=== PATIENT | female | born 1960 | race Caucasian/White ===

== ENCOUNTER 2017-11-20 18:14 | Emergency (ER) | payer OTHER, MEDICAID ==
--- NOTE | 2017-11-20 18:33 | EDPHY ---
H & P Time Seen by Provider: 11/20/17 18:33 HPI/ROS: CHIEF COMPLAINT: Itching rash on toes HISTORY OF PRESENT ILLNESS: 57-year-old homeless female complaining of 3 days of itching erythema to the webspace to the 4th and 5th digit . No pain. No trauma. No lymphangitic streaking. Up to date tetanus. Able to bear weight PRIMARY CARE PROVIDER: REVIEW OF SYSTEMS: A ten point review of systems was performed and is negative with the exception of the items mentioned in the HPI PHYSICAL EXAM (Prior to examination, patient consented to physical exam, hands were washed and my usual and customary physical exam procedures followed) 1) GENERAL: Well-developed, well-nourished, alert and oriented. Appears to be in no acute distress. 2) HEAD: Normocephalic 3) HEENT: sclera anicteric 4) LUNGS: Breathing comfortably. 5) SKIN: In the webspace to in the right 4th and 5th toe patient has faint erythema consistent with tinea pedis. There is no sign of cellulitis. No lymphangitic streaking. No crepitus. DP PT pulses are present and brisk. Smoking Status: Heavy smoker Constitutional: Initial Vital Signs Temperature (C) 36.9 C 11/20/17 18:18 Heart Rate 85 11/20/17 18:18 Respiratory Rate 16 11/20/17 18:18 Blood Pressure 163/98 H 11/20/17 18:18 O2 Sat (%) 100 11/20/17 18:18 O2 Delivery Mode Room Air Allergies/Adverse Reactions: Sulfa (Sulfonamide Antibiotics) Allergy (Verified 11/20/17 18:24) tetracycline Allergy (Verified 11/20/17 18:24) Home Medications: Medication Instructions Recorded Bp And Chol Med 11/20/17 Carvedilol 6.25 mg PO 11/20/17 Nystatin/Triamcin 1 valentin TP BID #30 oint...g. 11/20/17 [Nystatin-Triamcinolone Ointm] MDM/Departure - MDM ED Course/Re-evaluation: 6:50 p.m.: Homeless female with clinical findings consistent with tinea pedis. Doubt cellulitis. Do not think that hospitalization dictated. We discussed foot Health and hygiene. I am prescribing the patient topical antifungal. She is newly arrived from [place], [facility]. Provided her with [facility] follow-up information. If she develops erythema, lymphangitis streaking or any other symptoms to return to the ER. She feels comfortable being discharged. I saw this patient independently based on established practice protocols. Care of patient under supervision of secondary supervising physician Dr Reyes . - Depart Disposition: Home, Routine, Self-Care Clinical Impression: Tinea pedis Qualifiers: Laterality: right Qualified Code(s): B35.3 - Tinea pedis Condition: Good Instructions: Athlete's Foot (ED) Additional Instructions: Return to the ER if you develop redness, swelling, discharge, warmth to the wound, red streaks going up your leg, or any other symptoms that concern you. Prescriptions: Nystatin/Triamcin [Nystatin-Triamcinolone Ointm] 1 valentin TP BID #30 oint...g. Referrals: NONE *PRIMARY CARE P,. [Primary Care Provider] - As per Instructions
[2017-11-20 19:03] VITALS: BP 155/102
== END 2017-11-20 19:05 | disposition home or self-care (01) ==
DX: B35.3 Tinea pedis (principal); F17.200 Nicotine dependence, unspecified, uncomplicated

== ENCOUNTER 2017-12-03 14:05 | Emergency (ER) | payer OTHER, MEDICAID ==
[2017-12-03 14:22] VITALS: BP 105/57
--- NOTE | 2017-12-03 15:02 | EDPHY ---
H & P Stated Complaint: l sided abd pain/thinks it is hernia has had pain for 3 years Time Seen by Provider: 12/03/17 15:01 HPI/ROS: CHIEF COMPLAINT: Requesting surgical referral HISTORY OF PRESENT ILLNESS: The patient presents to the ED requesting a referral to a general surgeon for a 3 year history of a bilateral inguinal hernia. The patient has a prior history of a right inguinal hernia which has been repaired. She has developed a recurrent right inguinal hernia and reports symptoms consistent with a left inguinal hernia. The patient denies fever, cough or congestion. She denies additional acute complaints. She denies vomiting. She denies any irreducible masses in her groin area. REVIEW OF SYSTEMS: A comprehensive 10 point review of systems is otherwise negative aside from elements mentioned in the history of present illness. Source: Patient - Personal History Current Tetanus/Diphtheria Vaccine: No - Medical/Surgical History Hx Asthma: No Hx Chronic Respiratory Disease: Yes Hx Diabetes: No Hx Cardiac Disease: Yes Hx Renal Disease: No Hx Cirrhosis: No Hx Alcoholism: No Hx HIV/AIDS: No Hx Splenectomy or Spleen Trauma: No Other PMH: [place] x 2. valve stenosis ,htn l inguinal hernia - Social History Smoking Status: Heavy smoker - Physical Exam Exam: General Appearance: Alert, no distress Eyes: Pupils equal and round no pallor or injection ENT, Mouth: Mucous membranes moist Respiratory: There are no retractions, lungs are clear to auscultation Cardiovascular: Regular rate and rhythm Gastrointestinal: Old surgical incision clean dry and intact, small left inguinal hernia without evidence of incarceration or strangulation Skin: Warm and dry, no rashes Musculoskeletal: Neck is supple nontender Extremities: symmetrical, full range of motion Constitutional: Initial Vital Signs Temperature (C) 36.6 C 12/03/17 14:19 Heart Rate 69 12/03/17 14:19 Respiratory Rate 18 12/03/17 14:19 Blood Pressure 105/57 L 12/03/17 14:19 O2 Sat (%) 99 12/03/17 14:19 O2 Delivery Mode Room Air Allergies/Adverse Reactions: Sulfa (Sulfonamide Antibiotics) Allergy (Verified 12/03/17 14:18) tetracycline Allergy (Verified 12/03/17 14:18) Home Medications: Medication Instructions Recorded Bp And Chol Med 11/20/17 Carvedilol 6.25 mg PO 11/20/17 Nystatin/Triamcin 1 valentin TP BID #30 oint...g. 11/20/17 [Nystatin-Triamcinolone Ointm] Medical Decision Making ED Course/Re-evaluation: The patient presents to the ED with a 3 year history of an inguinal hernia. There is no evidence of incarceration or strangulation. The patient will be referred to our on-call general surgeon. She is discharged home with customary aftercare instructions and return precautions. Departure - Departure Disposition: Home, Routine, Self-Care Clinical Impression: Inguinal hernia Condition: Good Instructions: Inguinal Hernia (ED) Additional Instructions: 1. Please contact the general surgeon you have been referred to to schedule an office based appointment for evaluation of your hernia. Referrals: Cassie Collins MD [Medical Doctor] - As per Instructions
== END 2017-12-03 15:17 | disposition home or self-care (01) ==
DX: K40.90 Unilateral inguinal hernia, without obstruction or gangrene, not specified as recurrent (principal); I25.2 Old myocardial infarction; I10 Essential (primary) hypertension; F17.200 Nicotine dependence, unspecified, uncomplicated

== ENCOUNTER 2017-12-14 13:03 | Observation (INO) | payer OTHER, MEDICAID ==
[2017-12-14] MEDS ORDERED: EPINEPHrine 1 MG/ML INJ ONE (13:12)
[2017-12-14] MEDS ORDERED: BUPIVACAINE 0.25% 30 ML SDV ONE (13:12)
--- NOTE | 2017-12-14 13:14 | PDHPUP ---
History & Physical Update H&P update statement: This history and physical update is based on an assessment of the patient which was completed after admission or registration (within 24 hours), but prior to the surgery/procedure. H&P update: H&P reviewed & patient examined, no change in patient's condition since H&P completed
[2017-12-14] MEDS ORDERED: LR 1,000 ML IV ONE (13:20)
[2017-12-14] MEDS ORDERED: LIDOCAINE 1% 2 ML INJ ID PRN (13:20)
[2017-12-14] MEDS ORDERED: MIDAZOLAM 2 MG/2 ML VIAL IVP ONE (14:19)
--- NOTE | 2017-12-14 14:27 | PDANEPAE ---
ANE History of Present Illness Inguinal hernia ANE Past Medical History - Cardiovascular History Hx Hypertension: Yes Hx Arrhythmias: No Hx Chest Pain: Yes Hx Coronary Artery / Peripheral Vascular Disease: Yes Hx CHF / Valvular Disease: No Hx Palpitations: Yes Cardiovascular History Comment: hx of [place] x 2 - 2007 & 2008 - Pulmonary History Hx COPD: Yes Hx Asthma/Reactive Airway Disease: Yes Hx Recent Upper Respiratory Infection: Yes Hx Oxygen in Use at Home: No Pulmonary History Comment: 1 pack cigarettes Q2days. Pneumonia - Jul 2017. - Neurologic History Hx Cerebrovascular Accident: No Hx Seizures: Yes Neurologic History Comment: Seizure - 1988 or 1989 - Endocrine History Hx Diabetes: No - Renal History Hx Renal Disorders: No - Liver History Hx Hepatic Disorders: No - Neurological & Psychiatric Hx Hx Neurological and Psychiatric Disorders: Yes Neurological / Psychiatric History Comment: PTSD, Bipolar disorder, Depressive, and Schizoaffective disorder. - Cancer History Hx Cancer: Yes Cancer History Comment: Ovarian cancer - Congenital Disorder History Hx Congenital Disorders: No - Surgical History Prior Surgeries: Right hernia repair. Tubal ligation. Oophorectomy. Uterine fibroids ANE Review of Systems Review of systems is: negative Review of Systems: - Exercise capacity METS (RN): 4 METS ANE Patient History - Allergies Allergies/Adverse Reactions: Sulfa (Sulfonamide Antibiotics) Allergy (Verified 12/14/17 13:36) ulcerative colitis tetracycline Allergy (Verified 12/14/17 13:36) Vomiting - Home Medications Home medications: home medication list seen and reviewed Home Medications: Bp And Chol Med 11/20/17 [Last Taken Unknown] Carvedilol 6.25 mg PO 11/20/17 [Last Taken 12/13/17] Advair 250/50 (*) 12/14/17 [Last Taken 12/13/17] Amitiza 12/14/17 [Last Taken 2 Weeks Ago ~11/30/17] Amlodipine Besylate 12/14/17 [Last Taken 12/13/17] Atorvastatin Calcium 12/14/17 [Last Taken 12/13/17] Benazepril HCl 12/14/17 [Last Taken 12/13/17] FOLIC ACID 12/14/17 [Last Taken 12/13/17] Hydroxychloroquine Sulfate 12/14/17 [Last Taken 12/13/17] Lyrica 12/14/17 [Last Taken 12/13/17] Melatonin 12/14/17 [Last Taken 12/13/17] Methotrexate 12/14/17 [Last Taken 12/13/17] Prazosin HCl 12/14/17 [Last Taken 12/13/17] Proair Hfa 12/14/17 [Last Taken 12/13/17] - NPO status NPO Since - Liquids (Date): 12/14/17 NPO Since - Liquids (Time): 04:30 NPO Since - Solids (Date): 12/13/17 NPO Since - Solids (Time): 18:30 - Anes Hx Anes Hx: no prior problems - Smoking Hx Smoking Status: Heavy smoker - Family Anes Hx Family Anes Hx: none Family Hx Anesthesia Complications: None. ANE Labs/Vital Signs - Vital Signs Vital Signs: reviewed preoperatively; see RN documention for details Blood Pressure: 138/75 Heart Rate: 62 Respiratory Rate: 18 O2 Sat (%): 100 Height: 167.64 cm Weight: 56.699 kg ANE Physical Exam - Airway Neck exam: FROM Mallampati Score: Class 1 Mouth exam: dentures - Pulmonary Pulmonary: no respiratory distress - Cardiovascular Cardiovascular: regular rate and rhythym - ASA Status ASA Status: III ANE Anesthesia Plan Anesthesia Plan: general endotracheal anesthesia
[2017-12-14] MEDS ORDERED: MIDAZOLAM 2 MG/2 ML VIAL ONE (14:29)
[2017-12-14] MEDS ORDERED: ceFAZolin 2 GM/DEXTROSE 100 ML IV ONE (14:40)
[2017-12-14] MEDS ORDERED: PROPOFOL 200 MG/20 ML VIAL ONE (14:40)
[2017-12-14] MEDS ORDERED: DEXAMETHASONE 4 MG/ML VIAL ONE (14:40)
[2017-12-14] MEDS ORDERED: ONDANSETRON 4 MG/2 ML VIAL ONE (14:40)
[2017-12-14] MEDS ORDERED: fentaNYL 100 MCG/2 ML INJ ONE ×2 (14:40→16:14)
[2017-12-14] MEDS ORDERED: LIDOCAINE 2% 100 MG/5 ML SYR ONE (14:40)
--- NOTE | 2017-12-14 15:39 | POSTOPPROG ---
Post Op Note Date of Operation: 12/14/17 Surgeon: Zhang Patton Smooth Plater: SUSAN Liu Anesthesiologist: Radha Anesthesia: GET(General Endotracheal) Pre-op Diagnosis: LIH Post-op Diagnosis: same Procedure: open left inguinal hernia repair with mesh Findings: indirect Inf/Abcess present in the surg proc area at time of surgery?: No EBL: Minimal
[2017-12-14] MEDS ORDERED: ONDANSETRON 4 MG/2 ML VIAL IVP PRN (15:50)
[2017-12-14] MEDS ORDERED: ACETAMINOPHEN 500 MG TAB PO PRN (15:50)
[2017-12-14] MEDS ORDERED: HYDROmorphONE/DILAUDID 1 MG/ML INJ IVP PRN (15:50)
[2017-12-14] MEDS ORDERED: MEPERIDINE 25 MG/0.5 ML AMP IVP PRN (15:50)
[2017-12-14] MEDS ORDERED: DEXAMETHASONE 4 MG/ML VIAL IVP PRN (15:50)
[2017-12-14] MEDS ORDERED: NALOXONE HCL 0.4 MG/ML INJ IVP PRN (15:50)
[2017-12-14] MEDS ORDERED: PROMETHAZINE HCL 25 MG/ML INJ IVP PRN (15:50)
[2017-12-14] MEDS ORDERED: oxyCODONE IR 5 MG TAB PO PRN (15:50)
[2017-12-14] MEDS ORDERED: ALBUTEROL 3 ML DEYVIAL IH PRN (15:50)
[2017-12-14] MEDS ORDERED: fentaNYL 100 MCG/2 ML INJ IVP PRN (15:50)
--- NOTE | 2017-12-14 15:51 | POSTANESTH ---
Post Anesthetic Evaluation Cardiovascular Status: Similar to Pre-Op Cond Respiratory Status: Similar to Pre-op Cond. Level of Consciousness/Mental Status: Can Participate in Eval, Moderately Sleepy Pain Control: Adequate, Prn Tx Ordered Nausea/Vomiting Control: Adequate, Prn Tx Ordered Complications Possibly Related to Anesthesia: None Noted
[2017-12-14] MEDS: HYDROCODONE/APAP 5/325 TAB PO PRN ×3 (17:34→22:02)
[2017-12-14] MEDS: IBUPROFEN 600 MG TAB PO SCH (22:02)
[2017-12-15] MEDS: HYDROCODONE/APAP 5/325 TAB PO PRN ×2 (03:05→09:45)
[2017-12-15] MEDS: IBUPROFEN 600 MG TAB PO SCH (05:58)
[2017-12-15 07:43] VITALS: BP 118/72
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
--- NOTE | 2017-12-17 09:22 | ASMTLCPROG ---
Notes Note: Notes: This note was created by KESHAWN Ga: DONNIE Sher requested consultation regarding the patient's reported SI pre-surgery . The patient reported wishing she "just wouldn't wake up." She reported that she couldn't suicide because of her responsibility to her cat.KESHAWN met the patient and the patient was no longer endorsing SI. The patient has had a history of chronic and passive SI and increased stressors. She plans to heal from surgery and return to [place] at the end of the month. The patient expressed gratitude for [facility] staff who are supporting her medical needs and their concern for her psychiatric health also. Date Signed: 12/17/2017 09:22 AM Electronically Signed By:Sarah Witt RN
--- NOTE | 2017-12-31 12:48 | GOP ---
[f rep st] OPERATIVE REPORT DATE OF OPERATION: 12/14/2017 SURGEON: Zhang Patton MD OUTSIDE MAINTENANCE WORKER: SHANIA Liu. ANESTHESIA: General endotracheal Dr. Garcia. PREOPERATIVE DIAGNOSIS: Left inguinal hernia. POSTOPERATIVE DIAGNOSIS: Left inguinal hernia. PROCEDURE PERFORMED: Open left inguinal hernia repair with mesh FINDINGS: Moderate-sized indirect inguinal hernia, highly ligated and repaired with Parietex ProGrip mesh. SPECIMENS: None. ESTIMATED BLOOD LOSS: 5 cc. DESCRIPTION OF PROCEDURE: The patient was greeted in the preoperative suite. Once again, risks, damien efits, and alternatives were discussed. Consent was signed. She was then brought back to the operat tom suite, placed on the OR table in supine position. After all anesthesia machines including SCDs w ere on and functioning, a [employer] time-out was performed. After successful inducti on of general anesthesia, the patient's abdomen was prepped and draped in typical sterile fashion. I commenced the procedure by making a field block in the groin area and making a 4 cm incision adjacen t to the pubic tubercle. This was carried down through the subcutaneous tissue. The aponeurosis of the external oblique was then opened sharply. The round ligament was then identified and subsequentl y encircled and tied off and cut. Within this was a fairly large indirect hernia sac which was tease d off, highly ligated with a 2-0 Vicryl stitch. The floor was intact. I repaired the defect with a Parietex ProGrip piece of mesh. I tacked it to the pubic tubercle with an interrupted 0-Vicryl stitc h, as well as a single stitch in the conjoined tendon. It was allowed to lay along the inguinal liga ment without any undue tension. I then turned my attention toward closing. I closed the external ob lique with a running 2-0 Vicryl, the subcutaneous tissue with a 3-0 Vicryl and the skin with a Monocr yl over which Dermabond was placed. Local anesthesia was used throughout to create a field block. T he patient was then extubated in the operative suite and taken to the PACU in satisfactory condition. DRAINS: None. COUNTS: All counts were reported as correct x2. /[id number]/MODL
--- NOTE | 2018-01-04 22:01 | GDS ---
[f rep st] DISCHARGE SUMMARY DISCHARGE DIAGNOSIS: Left inguinal hernia. PROCEDURE: Open left inguinal hernia repair with mesh. SPECIAL TESTS: None. INTRAOPERATIVE FINDINGS: Moderately sized indirect inguinal hernia, highly ligated and repaired with Parietex ProGrip mesh. HOSPITAL COURSE: Sharron is a 57-year-old female with a recurrent left inguinal hernia. She went to [facility] operating room for repair with Dr. Patton. The procedure was uncomplicated, and she tolerated it well. The patient's postoperative course was relatively uneventful. She was kept overnight for observation . She was discharged to home in stable condition on postoperative day 1 with plans for outpatient kera. /[id number]/MODL
== END 2017-12-15 11:23 | disposition home or self-care (01) ==
LOC: F3N 13:03 → F1N 16:51
PROVIDERS: ADMIT Surgery; ATTEND Surgery
PROC: 0YU60JZ Supplement Left Inguinal Region with Synthetic Substitute, Open Approach (ICD-10-PCS; principal; 2017-12-14 14:30)
DX: K40.90 Unilateral inguinal hernia, without obstruction or gangrene, not specified as recurrent (principal); I25.10 Atherosclerotic heart disease of native coronary artery without angina pectoris; I25.2 Old myocardial infarction; J45.909 Unspecified asthma, uncomplicated; M06.9 Rheumatoid arthritis, unspecified; K51.90 Ulcerative colitis, unspecified, without complications; I10 Essential (primary) hypertension; F17.210 Nicotine dependence, cigarettes, uncomplicated; F31.9 Bipolar disorder, unspecified; Z85.43 Personal history of malignant neoplasm of ovary; Z82.49 Family history of ischemic heart disease and other diseases of the circulatory system; Z90.721 Acquired absence of ovaries, unilateral
CPT/HCPCS: 49505; C1781; J0171; J0690; J1100; J2001; J2250; J2405; J2704; J3010

== ENCOUNTER → 2017-12-22 | Outpatient (CLI) | payer MEDICAID, OTHER | LOC: BMCIMAGING 13:26 | PROVIDERS: ATTEND Emergency Medicine | DX: J44.9 Chronic obstructive pulmonary disease, unspecified (principal); J40 Bronchitis, not specified as acute or chronic; F17.210 Nicotine dependence, cigarettes, uncomplicated ==

== ENCOUNTER 2018-01-02 20:46 | Inpatient (IN) | payer OTHER, MEDICAID ==
[2018-01-02] MEDS ORDERED: NS 1,000 ML IV ONE ×2 (20:51→22:55)
--- NOTE | 2018-01-02 20:54 | CPEKG ---
Heart Rate: 70 RR Interval: 857 P-R Interval: 124 QRSD Interval: 104 QT Interval: 520 QTC Interval: 562 P Verona: 32 QRS [place]ona: 62 T Wave Verona: 85 EKG Severity - ABNORMAL ECG - EKG Impression: SINUS RHYTHM EKG Impression: BORDERLINE INFERIOR Q WAVES EKG Impression: NONSPECIFIC T ABNORMALITIES, ANT-LAT LEADS EKG Impression: PROLONGED QT INTERVAL Electronically Signed By: Messi Reyes 02-Jan-2018 20:59:04
[2018-01-02] MEDS ORDERED: NS 1,700 ML IV ONE (20:57)
--- NOTE | 2018-01-02 20:57 | EDPHY ---
H & P Stated Complaint: CP Time Seen by Provider: 01/02/18 20:51 HPI/ROS: CHIEF COMPLAINT: Lightheaded 2, nausea HISTORY OF PRESENT ILLNESS: The patient is a 57-year-old female with a history of methamphetamine abuse as well as coronary disease, bipolar and schizoaffective disease who comes to the emergency department complaining of acute onset of lightheadedness and nausea that began about an hour ago. No focal weakness or deficits. No syncope, no seizures. She denies chest pain or shortness of breath. She states that she has feels nauseous but has not vomited. She had normal vital signs for EMS but is hypotensive here. She admits to using methamphetamine yesterday for the 1st time and several months. She is staying at the [facility]. She denies recent fevers or infections. She denies abdominal pain. REVIEW OF SYSTEMS: Constitutional: denies: chills, fever, recent illness, recent injury EENTM: denies: blurred vision, double vision, nose congestion Respiratory: denies: cough, shortness of breath Cardiac: See HPI Gastrointestinal/Abdominal: See HPI Genitourinary: denies: dysuria, frequency, hematuria, pain Musculoskeletal: denies: joint pain, muscle pain Skin: denies: lesions, rash, jaundice, bruising Neurological: See HPI denies: headache, numbness, paresthesia, tingling, dizziness, weakness Hematologic/Lymphatic: denies: blood clots, easy bleeding, easy bruising Immunologic/allergic: denies: HIV/AIDS, transplant EXAM: GENERAL: Thin, moderate distress HEAD: Atraumatic, normocephalic. EYES: No nystagmus, Pupils equal round and reactive to light, extraocular movements intact, sclera anicteric, conjunctiva are normal. ENT: TMs normal, nares patent, oropharynx clear without exudates. Moist mucous membranes. NECK: Normal range of motion, supple without lymphadenopathy or JVD. LUNGS: Breath sounds clear to auscultation bilaterally and equal. No wheezes rales or rhonchi. HEART: Regular rate and rhythm without murmurs, rubs or gallops. ABDOMEN: Soft, nontender, normoactive bowel sounds. No guarding, no rebound. No masses appreciated. BACK: No CVA tenderness, no spinal tenderness, step-offs or deformities EXTREMITIES: Normal range of motion, no pitting or edema. No clubbing or cyanosis. NEUROLOGICAL: Cranial nerves II through XII grossly intact. Normal speech, normal gait. 5/5 strength, normal movement in all extremities, normal sensation PSYCH: Normal mood, normal affect. SKIN: Warm, dry, normal turgor, no visible rashes or lesions. Source: Patient Exam Limitations: No limitations - Personal History Current Tetanus/Diphtheria Vaccine: Unsure Current Tetanus Diphtheria and Acellular Pertussis (TDAP): Unsure - Medical/Surgical History Hx Asthma: No Hx Chronic Respiratory Disease: Yes Hx Diabetes: No Hx Cardiac Disease: Yes Hx Renal Disease: No Hx Cirrhosis: No Hx Alcoholism: No Hx HIV/AIDS: No Hx Splenectomy or Spleen Trauma: No Other PMH: [place] x 2. valve stenosis ,htn L inguinal hernia repair, CAD, COPD, Ovarian cancer, bipolar, schizo-affective disorder, PTSD, Ulcerative colitis - Family History Significant Family History: No pertinent family hx - Social History Smoking Status: Heavy smoker Drug Use: Other Constitutional: Initial Vital Signs Temperature (C) 36.6 C 01/02/18 20:47 Heart Rate 70 01/02/18 20:47 Respiratory Rate 16 01/02/18 20:47 Blood Pressure 74/51 L 01/02/18 20:47 O2 Sat (%) 94 01/02/18 20:47 O2 Delivery Mode Room Air Allergies/Adverse Reactions: Sulfa (Sulfonamide Antibiotics) Allergy (Verified 12/14/17 17:40) ulcerative colitis tetracycline Allergy (Verified 12/14/17 17:40) Vomiting Home Medications: Medication Instructions Recorded Albuterol [Proventil Inhaler HFA 2 puffs IH Q4-6PRN PRN 12/15/17 (*)] Atorvastatin Calcium [Lipitor 40 40 mg PO DAILY 12/15/17 mg (*)] Benazepril HCl 40 mg PO DAILY 12/15/17 Carvedilol [Coreg (*)] 6.25 mg PO BIDMEAL 12/15/17 Dicyclomine [Bentyl 20 MG (*)] 20 mg PO BID 12/15/17 Ferrous Sulfate [Ferrous Sulf 325 325 mg PO DAILY 12/15/17 MG (*)] Fluticasone/Salmeter 250/50Mcg 1 puffs IH BID 12/15/17 [Advair 250/50 (*)] Folic Acid [Folic Acid 1 MG (*)] 1 mg PO DAILY 12/15/17 Hydroxychloroquine Sulfate 400 mg PO DAILY 12/15/17 [Plaquenil 200 mg (*)] Lubiprostone [Amitiza 24 mcg (*)] 24 mcg PO BIDMEAL 12/15/17 Melatonin [Melatonin 5 mg] 10 mg PO HS 12/15/17 Methotrexate Sodium [Rheumatrex] 12.5 mg PO Q7D 12/15/17 Nystatin [Mycostatin Oint (RX)] 1 valentin TP BID 12/15/17 Prazosin HCl [Minipress 1mg (*)] 1 mg PO HS 12/15/17 Pregabalin [Lyrica 150mg (*)] 150 mg PO BID 12/15/17 amLODIPine BESYLATE [Norvasc 5 mg 5 mg PO DAILY 12/15/17 (*)] Beclomethasone Dipropionate [Qvar 01/03/18 Redihaler] Medical Decision Making - Diagnostics EKG Interpretation: An EKG obtained and was read and documented in trace view. Please see trace view for full reading and report. Sinus rhythm, no acute ischemic changes A repeat EKG obtained and was read and documented in trace view. Please see trace view for full reading and report. Sinus rhythm, no acute ischemic changes similar to previous Procedures: Procedure: Ultrasound guidance: Using the linear probe covered in a sterile sheath, a short axis of the vein was obtained. The vein was completely compressible and was identified as separate from the adjacent non-compressible arterial structure. Under real-time guidance, the introducer needle was observed up to the vein, and then punctured it. These images were saved on the database. Central line placement: The indication for the procedure was hypotension. After verbal informed consent from patient; the risks were explained including bleeding, infection, and collapsed lung. Maximal sterile barrier technique was uses including cap, gown, sterile gloves, large sheet, hand washing and chlorhexidine prep. The area anesthetized with 1% lidocaine. The right IJ was punctured with a 19 gauge finder needle, then a wire introducer was placed, a triple-lumen was placed using Seldinger technique. There were no complications. Blood return low pressure, dark blood. The patient tolerated procedure well. CXR results: Good placement as interpreted by myself. Radiologist interpretation is pending. The procedure was performed by myself. ED Course/Re-evaluation: 9:35 p.m. I discussed the case with Dr. Tien savage from Cardiology. 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 9:40 p.m. discussed the case with Dr. Arlene Maldonado will admit to the ICU. Differential Diagnosis: Partial list of the Differential diagnosis considered include but were not limited to; cardiomyopathy, anemia, acute coronary disease and although unlikely based on the history and physical exam, I also considered dissection, PE, pneumonia. Critical Care Time: Critical care time spent by me, Dr. Reyes exclusive with this patient was 45 minutes, exclusive of the PA time exclusive of procedures. The organ system that was at risk was cardiovascular and I gave IV fluids, medications, diagnostics, consultation and admission to prevent worsening of the patient's condition - Data Points Laboratory Results: Laboratory Results 01/02/18 20:46 01/02/18 20:46 Medications Given: Discontinued Medications Acetaminophen (Tylenol) 650 mg PO Q4HRS PRN PRN Reason: Pain, Mild/Fever, Can Take PO Stop: 07/01/18 22:16 Last Admin: 01/03/18 04:07 Dose: 650 mg Aspirin (Aspirin) 324 mg PO EDNOW ONE Stop: 01/02/18 21:09 Last Admin: 01/02/18 21:28 Dose: 324 mg Hydrocortisone (Solucortef) 100 mg IVP ONCE ONE Stop: 01/02/18 23:11 Last Admin: 01/02/18 23:25 Dose: 100 mg Sodium Chloride (Ns) 1,000 mls @ 0 mls/hr IV EDNOW ONE; Wide Open PRN Reason: Protocol Stop: 01/02/18 20:52 Last Admin: 01/02/18 21:00 Dose: 1,000 mls Sodium Chloride (Ns) 1,700 mls @ 3,400 mls/hr 30 ml/kg infuse over 30 min ( 1700 ml) IV EDNOW ONE PRN Reason: Protocol Stop: 01/02/18 21:26 Last Admin: 01/02/18 21:24 Dose: 1,700 mls Dopamine HCl/Dextrose (Dopamine 1600 Mcg/Ml (Premix)) 250 mls @ 0 mls/hr IV CONT JAYMIE; Titrate PRN Reason: Protocol Stop: 07/01/18 21:59 Last Admin: 01/03/18 04:32 Dose: 250 mls Sodium Chloride (Ns) 1,000 mls @ 0 mls/hr IV ONCE ONE PRN Reason: Wide Open Stop: 01/02/18 22:56 Last Admin: 01/02/18 23:20 Dose: 1,000 mls Norepinephrine 4 mg/ Dextrose 504 mls @ 0 mls/hr IV CONT JAYMIE; Titrate PRN Reason: Protocol Stop: 07/01/18 22:59 Last Admin: 01/03/18 06:47 Dose: 504 mls Piperacillin/Tazobactam/Dextrose (Zosyn 3.375 Gm (Premix)) 50 mls @ 100 mls/hr IV Q6HRS JAYMIE PRN Reason: Protocol Stop: 02/02/18 00:00 Last Admin: 01/03/18 05:54 Dose: 50 mls Vancomycin/Sodium Chloride (Vancomycin 1 Gm (Premix)) 250 mls @ 250 mls/hr IV Q12H JAYMIE Stop: 02/02/18 00:00 Last Admin: 01/03/18 00:40 Dose: 250 mls Sodium Chloride (Ns) 1,000 mls @ 250 mls/hr IV CONT JAYMIE Stop: 07/02/18 01:59 Last Admin: 01/03/18 10:20 Dose: 1,000 mls Albumin Human (Alburx 5) 500 mls @ 0 mls/hr IV ONCE ONE PRN Reason: As Directed Stop: 01/03/18 10:00 Last Admin: 01/03/18 10:05 Dose: 500 mls Point of Care Test Results: Chemistry 01/02/18 20:54 POC Troponin I 0.21 ng/mL H ng/mL (0.00-0.08) Departure - Departure Disposition: [facility] Acute Clinical Impression: Hypotension Qualifiers: Hypotension type: unspecified hypotension type Qualified Code(s): I95.9 - Hypotension, unspecified Condition: Good
[2018-01-02 21:00] LABS: PLATELET COUNT 366 10^3/uL (150-400)
[2018-01-02 21:08] LABS: INR 1.06 (0.83-1.16)
[2018-01-02] MEDS ORDERED: ASPIRIN 81 MG CHEWABLE TAB PO ONE (21:08)
[2018-01-02] MEDS ORDERED: ONDANSETRON 4 MG/2 ML VIAL IVP PRN (22:17)
[2018-01-02] MEDS ORDERED: ONDANSETRON DISINTEGRATING 4 MG TAB PO PRN (22:17)
[2018-01-02] MEDS ORDERED: ACETAMINOPHEN 325 MG TAB PO PRN (22:17)
--- NOTE | 2018-01-02 22:44 | ECHO ---
[email or web address] [address] [address] Main: [phone] Fax: Transthoracic Echocardiogram Name: ARI MAYNARD MR#: [id number] Study Date: 01/02/2018 Study Time: 10:21 PM Date of : 1960 Age: 57 year(s) Height: ( ) Weight: ( ) BSA: Gender: Female Examination: Echo Indication: Chest Pain Image Quality: Contrast: Requested by: Messi Reyes BP: 87 mmHg/43 mmHg Heart Rate: Rhythm: Indication: Chest Pain Procedure Staff Office Services Associate: Melissa Saravia RDCS Reading Physician: Tien Calero MD Requesting Provider: Conclusions: 1)Low normal LV systolic function with a LVEF of 53% and old inferior NE with severe inferior hypokinesis and thining of myocardium in that area. 2)Mild concentric LVH noted. 3)Mild left atrial enlargement noted. 4)Mild MR without MV prolapse. 5)Mild TR noted. 6)No obvious valvular vegetations. 7)No pericardial effusion noted. Measurements: Chambers Valvular Assessment AV/MV Valvular Assessment TV/PV Normal Normal Normal Name Value Range Name Value Range Name Value Range LVEF (MOD4): 53 % (>=55 %) AV Vmax: 1.12 m/s (1 m/s-1.7 TR Vmax: 1.72 mm/s ( - ) EF Range: 50-55 % m/s) TR PGmax: 12 mmHg ( - ) AV maxP mmHg ( - ) syst. PAP: 17 mmHg ( - ) AV meanP mmHg ( - ) MV E Vmax: 0.57 m/s ( - ) MV A Vmax: 0.52 m/s ( - ) MV E/A: 1.10 ( - ) Continued Measurements: Chambers Valvular Assessment AV/MV Valvular Assessment TV/PV Name Value Name Value Name Value LADs Lon.4 cm MV E/E' Septal: 10.50 CVP (est.): 5 mmHg LA Area: 24.0 cm2 MV E/E' Lateral: 8.90 Patient: ARI MAYNARD Study Date: 01/02/2018 Page 1 of 2 10:21 PM Findings: Left Ventricle: Normal size left ventricle. Mild concentric LV hypertrophy. Normal global systolic LV function. The ejection fraction is estimated to be 50-55 %. LV basal inferior/inferolateral/inferoseptal dowling are akinetic and aneurysmal. All remaining LV segments have normal motion.. Right Ventricle: Normal size right ventricle. Left Atrium: The left atrium is mildly dilated. Right Atrium: The right atrium is normal in size. Mitral Valve: The mitral valve is normal in appearance and function. Mild mitral valve regurgitation is present. Aortic Valve: The aortic valve is normal in appearance and function. The aortic valve is tri-leaflet. Tricuspid Valve: The tricuspid valve is normal in appearance and function. Mild tricuspid regurgitation is present. The pulmonary artery pressure is normal. Pulmonic Valve: The pulmonic valve is normal in appearance and function. Aorta: The aorta is normal. Pericardium: No pericardial effusion. (No Signature Object) Patient: ARI MAYNARD Study Date: 01/02/2018 Page 2 of 2 10:21 PM [id number]
[2018-01-02] MEDS ORDERED: NOREPINEPHRINE BITARTRATE 4 MG in NS 500 ML IV SCH (23:00)
[2018-01-02] MEDS ORDERED: HYDROCORTISONE 100 MG/2 ML VIAL IVP ONE (23:10)
[2018-01-02] MEDS: NOREPINEPHRINE BITARTRATE 4 MG in D5W 500 ML IV SCH (23:21)
[2018-01-02] MEDS ORDERED: IOPAMIDOL (ISOVUE 370) 100 ML BTL IV ONE (23:25)
--- NOTE | 2018-01-02 23:59 | PDGENHP ---
History and Physical - Chief Complaint Nausea, dizziness - History of Present Illness 57 yo F w/ hx of CAD, COPD, BPD, UC, and recent L inguinal hernia repair presents with acute onset nausea and dizziness. Patient [facility] she experienced acute onset nausea and dizziness. She denies fever, chest pain, and shortness of breath. She denies prior similar episodes. She recently finished a course of steroids for bronchitis but denies any other recent illness. She did have a L inguinal hernia repair earlier this month but denies any obvious issues related to this. Of note, she does admit to smoking methamphetamine on the day prior to presentation. In the ED patient was noted be hypotensive on arrival. A central line was obtained and dopamine was started. Despite this, she remained hypotensive at the time of my evaluation in the ICU. Her laboroatory work-up was mostly unremarkable aside from POC troponin of 0.2. Due to this, a STAT Echo was obtained, which was not consistent with cardiogenic shock or cardiomyopathy. It did reveal area of previous infarct, which is consistent with her known medical history. Case was discussed with Dr. Maldonado, previous records reviewed including ED note by Dr. Reyes from date of admission. History Information - Allergies/Home Medication List Allergies/Adverse Reactions: Sulfa (Sulfonamide Antibiotics) Allergy (Verified 12/14/17 17:40) ulcerative colitis tetracycline Allergy (Verified 12/14/17 17:40) Vomiting Home Medications: Albuterol [Proventil Inhaler HFA (*)] 2 puffs IH Q4-6PRN PRN 12/15/17 [Last Taken Unknown] Atorvastatin Calcium [Lipitor 40 mg (*)] 40 mg PO DAILY 12/15/17 [Last Taken Unknown] Benazepril HCl 40 mg PO DAILY 12/15/17 [Last Taken Unknown] Carvedilol [Coreg (*)] 6.25 mg PO BIDMEAL 12/15/17 [Last Taken Unknown] Dicyclomine [Bentyl 20 MG (*)] 20 mg PO BID 12/15/17 [Last Taken Unknown] Ferrous Sulfate [Ferrous Sulf 325 MG (*)] 325 mg PO DAILY 12/15/17 [Last Taken Unknown] Fluticasone/Salmeter 250/50Mcg [Advair 250/50 (*)] 1 puffs IH BID 12/15/17 [ Last Taken Unknown] Folic Acid [Folic Acid 1 MG (*)] 1 mg PO DAILY 12/15/17 [Last Taken Unknown] Hydroxychloroquine Sulfate [Plaquenil 200 mg (*)] 400 mg PO DAILY 12/15/17 [ Last Taken Unknown] Lubiprostone [Amitiza 24 mcg (*)] 24 mcg PO BIDMEAL 12/15/17 [Last Taken Unknown ] Melatonin [Melatonin 5 mg] 10 mg PO HS 12/15/17 [Last Taken Unknown] Methotrexate Sodium [Rheumatrex] 12.5 mg PO Q7D 12/15/17 [Last Taken Unknown] Nystatin [Mycostatin Oint (RX)] 1 valentin TP BID 12/15/17 [Last Taken Unknown] Prazosin HCl [Minipress 1mg (*)] 1 mg PO HS 12/15/17 [Last Taken Unknown] Pregabalin [Lyrica 150mg (*)] 150 mg PO BID 12/15/17 [Last Taken Unknown] amLODIPine BESYLATE [Norvasc 5 mg (*)] 5 mg PO DAILY 12/15/17 [Last Taken Unknown] I have personally reviewed and updated: family history - Past Medical History coronary artery disease, COPD Additional medical history: UC. BPD - Surgical History Reports: hernia repair (12/15/17, L inguinal) - Family History Positive for: CAD - Social History Smoking Status: Heavy smoker Drug Use: Other Review of Systems Review of Systems: ROS: 10pt was reviewed & negative except for what was stated in HPI & below Physical Exam Physical Exam: Temp Pulse Resp BP Pulse Ox 35.6 C L 79 22 H 84/49 L 100 01/02/18 23:30 01/02/18 23:30 01/02/18 23:30 01/02/18 23:30 01/02/18 23:30 O2 (L/minute) 4 Constitutional: appears nourished, uncomfortable Eyes: PERRL, EOMI Ears, Nose, Mouth, Throat: moist mucous membranes, no oral mucosal ulcers Cardiovascular: regular rate and rhythym, no murmur, rub, or gallop Respiratory: no respiratory distress, clear to auscultation Gastrointestinal: normoactive bowel sounds, tenderness (Mild, diffuse) Skin: warm, normal color Musculoskeletal: full muscle strength, no muscle tenderness Neurologic: AAOx3, CN II-XII Intact Psychiatric: not anxious, encephalopathic Lab Data & Imaging Review 01/02/18 22:58 01/02/18 20:46 WBC 7.92 10^3/uL (3.80-9.50) 01/02/18 22:58 RBC 3.35 10^6/uL (4.18-5.33) L 01/02/18 22:58 Hgb 10.9 g/dL (12.6-16.3) L 01/02/18 22:58 Hct 33.2 % (38.0-47.0) L 01/02/18 22:58 MCV 99.1 fL (81.5-99.8) 01/02/18 22:58 MCH 32.5 pg (27.9-34.1) 01/02/18 22:58 MCHC 32.8 g/dL (32.4-36.7) 01/02/18 22:58 RDW 14.6 % (11.5-15.2) 01/02/18 22:58 Plt Count 278 10^3/uL (150-400) 01/02/18 22:58 MPV 9.3 fL (8.7-11.7) 01/02/18 20:46 Neut % (Auto) 50.7 % (39.3-74.2) 01/02/18 20:46 Lymph % (Auto) 30.4 % (15.0-45.0) 01/02/18 20:46 [place] % (Auto) 13.3 % (4.5-13.0) H 01/02/18 20:46 Eos % (Auto) 4.6 % (0.6-7.6) 01/02/18 20:46 Baso % (Auto) 0.8 % (0.3-1.7) 01/02/18 20:46 Nucleat RBC Rel Count 0.0 % (0.0-0.2) 01/02/18 20:46 Absolute Neuts (auto) 4.61 10^3/uL (1.70-6.50) 01/02/18 20:46 Absolute Lymphs (auto) 2.77 10^3/uL (1.00-3.00) 01/02/18 20:46 Absolute Monos (auto) 1.21 10^3/uL (0.30-0.80) H 01/02/18 20:46 Absolute Eos (auto) 0.42 10^3/uL (0.03-0.40) H 01/02/18 20:46 Absolute Basos (auto) 0.07 10^3/uL (0.02-0.10) 01/02/18 20:46 Absolute Nucleated RBC 0.00 10^3/uL (0-0.01) 01/02/18 20:46 Immature Gran % 0.2 % (0.0-1.1) 01/02/18 20:46 Immature Gran # 0.02 10^3/uL (0.00-0.10) 01/02/18 20:46 PT 14.0 SEC (12.0-15.0) 01/02/18 20:46 INR 1.06 (0.83-1.16) 01/02/18 20:46 APTT 24.2 SEC (23.0-38.0) 01/02/18 20:46 D-Dimer 0.28 ug/mLFEU (0.00-0.50) 01/02/18 20:46 VBG Lactic Acid 0.6 mmol/L (0.7-2.1) L 01/02/18 22:58 Sodium 133 mEq/L (135-145) L 01/02/18 20:46 Potassium 4.2 mEq/L (3.3-5.0) 01/02/18 20:46 Chloride 100 mEq/L (97-110) 01/02/18 20:46 Carbon Dioxide 22 mEq/l (22-31) 01/02/18 20:46 Anion Gap 11 mEq/L (8-16) 01/02/18 20:46 BUN 27 mg/dL (7-23) H 01/02/18 20:46 Creatinine 1.1 mg/dL (0.6-1.0) H 01/02/18 20:46 Estimated GFR 51 01/02/18 20:46 Glucose 107 mg/dL (70-100) H 01/02/18 20:46 Calcium 9.4 mg/dL (8.5-10.4) 01/02/18 20:46 Total Bilirubin 0.5 mg/dL (0.1-1.4) 01/02/18 20:46 Conjugated Bilirubin 0.1 mg/dL (0.0-0.5) 01/02/18 20:46 Unconjugated Bilirubin 0.4 mg/dL (0.0-1.1) 01/02/18 20:46 AST 34 IU/L (14-46) 01/02/18 20:46 ALT 32 IU/L (9-52) 01/02/18 20:46 Alkaline Phosphatase 68 IU/L (38-126) 01/02/18 20:46 POC Troponin I 0.21 ng/mL (0.00-0.08) H 01/02/18 20:54 Troponin I 0.146 ng/mL (0.000-0.034) H 01/02/18 22:58 Total Protein 6.5 g/dL (6.3-8.2) 01/02/18 20:46 Albumin 3.7 g/dL (3.5-5.0) 01/02/18 20:46 Lipase 116 IU/L (23-300) 01/02/18 20:46 Procalcitonin 0.07 ng/mL (0.02-0.10) 01/02/18 22:58 Urine Color YELLOW 01/02/18 23:12 Urine Appearance CLEAR 01/02/18 23:12 Urine pH 5.0 (5.0-7.5) 01/02/18 23:12 Ur Specific [place] 1.017 (1.002-1.030) 01/02/18 23:12 Urine Protein NEGATIVE (NEGATIVE) 01/02/18 23:12 Urine Ketones TRACE (NEGATIVE) H 01/02/18 23:12 Urine Blood NEGATIVE (NEGATIVE) 01/02/18 23:12 Urine Nitrate NEGATIVE (NEGATIVE) 01/02/18 23:12 Urine Bilirubin NEGATIVE (NEGATIVE) 01/02/18 23:12 Urine Urobilinogen NEGATIVE EU (0.2-1.0) 01/02/18 23:12 Ur Leukocyte Esterase NEGATIVE (NEGATIVE) 01/02/18 23:12 Urine RBC 1-3 /hpf (0-3) 01/02/18 23:12 Urine WBC 1-3 /hpf (0-3) 01/02/18 23:12 Ur Epithelial Cells NONE SEEN /lpf (NONE-1+) 01/02/18 23:12 Hyaline Casts 1-5 /lpf (0-1) 01/02/18 23:12 Urine Mucus TRACE /lpf (NONE-1+) 01/02/18 23:12 Urine Glucose NEGATIVE (NEGATIVE) 01/02/18 23:12 Imaging Review: Imaging Impressions Chest X-Ray 01/02/18 21:05 Impression: Clear lungs. Negative portable chest. Chest X-Ray 01/02/18 22:05 Impression: 1. New well-positioned right IJ central venous line. 2. No pneumothorax or edema. Visualized and Interpreted EKG results: Yes EKG Interpretation: Positive for: normal sinsus rhythm, NS ST wave abnormalities (Anterolateral), Q waves (Inferior) Assessment & Plan Assessment: 57 yo F w/ hx of CAD, COPD, BPD, UC, and recent inguinal hernia repair presents with undifferentiated shock. Plan: 1. Shock, undifferentiated - Currently requiring 2 vasopressors for circulatory support; considerations include hypovolemic vs. septic vs. cardiogenic. However , STAT echo obtained on admission with EF of 53% and no evidence of acute cardiomyopathy. Patient is hypothermic and relatively bradycardic but with normal WBC, lactate, and procalcitonin. POC troponin 0.2 on arrival but only 0.14 on formal recheck. - Admit to ICU - Continue fluid resuscitation - Titrate/add vasopressors as needed - Will initiate Vancomycin and Zosyn for broad, empiric infectious coverage - Hydrocortisone 100 mg IV x1 for possibility of adrenal insufficiency - Will check TSH - Obtain CTA Chest/Abdomen/Pelvis - Case discussed with Dr. Calero of cardiology and Dr. Gil of pulmonology who agree with above management 2. Hx CAD - With [place] x2 in 2007 per patient. TTE reveals area of inferior hypokinesis consistent with this. ECG also with inferior Q waves and nonspecific T wave inversions in anterolateral leads. Troponin 0.2 and 0.14 on admission. - Monitor on telemetry - Trend cardiac enzymes for at least one more set - Cardiology service consulted 3. Methamphetamine use disorder - Admit to use on the day prior to admission, unclear if this is contributing to presentation. - Check Utox 4. COPD - No evidence of acute exacerbation. She is currently maintaining sats well on RA. 5. Hx UC 6. Hx BPD Diet - Regular Code - Full Ppx - SCDs Dispo - Admit under inpatient status I personally spent >60 minutes of critical care time evaluating patient, interpreting data, and coordinating care with nursing staff and specialists.
[2018-01-03] MEDS ORDERED: VANCOMYCIN HCL/NORMAL SALINE 250 ML IV SCH
[2018-01-03] MEDS: PIPERACILLIN/TAZO 3.375 GM/DEX 50 ML IV SCH ×2 (00:05→05:54)
[2018-01-03] MEDS: NS 1,000 ML IV SCH ×2 (02:09→10:20)
[2018-01-03 05:06] LABS: PLATELET COUNT 336 10^3/uL (150-400)
[2018-01-03] MEDS: NOREPINEPHRINE BITARTRATE 4 MG in D5W 500 ML IV SCH (06:47)
[2018-01-03] MEDS ORDERED: ALBUMIN 5% 500 ML IV ONE (09:59)
--- NOTE | 2018-01-03 11:02 | PDMN ---
Medical Necessity Medical necessity: Pt meets IP criteria per MD; est los >2 mn for eval/tx of shock (hypovolemic vs septic vs cardiogenic); admit to ICU for further workup/ close monitoring, IV Vasopressors, IVFs, IV abx & Cardiology/Pulmonology consults; hx meth use, CAD, COPD; per H&P & order 01/02/18
[2018-01-03 12:02] VITALS: BP 86/57
--- NOTE | 2018-01-03 13:04 | GCON ---
[f rep st] CONSULTATION CRITICAL CARE CONSULTATION DATE OF CONSULTATION: 01/03/2018 REASON FOR CONSULTATION: Intensive care unit evaluation and management of hypotension. HISTORY: The patient is a 57-year-old woman with multiple medical problems, who had the acute onset of nausea and dizziness yesterday. She was up walking when this occurred at the [facility]. S he had no cough, mucus, chest pain, fevers, or other symptoms. She had no nausea or diarrhea. She h ad been using methamphetamine the day before. She apparently was recently on a course of prednisone for bronchitis and may have been on antibiotics? She does smoke cigarettes daily. She had a left in guinal hernia repair 2 or 3 weeks prior to this hospitalization but reports that she has been recover ing well and has little in the way of associated postoperative pain. The patient was hypotensive in the emergency department. A central line was placed for fluid resusci tation. She was started on dopamine and admitted to the intensive care unit where norepinephrine nee ded to be added. Troponin was negative. White blood cell count was not elevated. She has remained afebrile. A cardiac echo was obtained which was essentially within normal limits. Left ventricular ejection fraction was 55%. There was evidence of old myocardial infarction with a wall motion abnorm ality. Pulmonary artery pressures were normal. A CT angiogram of the chest was performed which was negative/normal. There was no evidence of pulmonary embolic disease or pulmonary infiltrates. This was extended down into the abdomen and pelvis and no significant abnormalities, abscess, or other iss ues were found. The patient does have a history of multiple medical problems including coronary artery disease, COPD, ongoing tobacco abuse, hypertension, rheumatoid arthritis and reactive airways disease. HOME MEDICATIONS: Included albuterol, Advair, amlodipine, prazosin, carvedilol, Lipitor, benazepril, Plaquenil, Lubiprostone, methotrexate weekly, nystatin, and Lyrica. ALLERGIES: Sulfa preparations, tetracyclines. SOCIAL HISTORY: Apparently lives at the [facility]. Smokes cigarettes. Uses various drugs at times. Most recently methamphetamine. FAMILY HISTORY: Noncontributory. REVIEW OF SYSTEMS: Positive for heart disease, previous [place], schizoaffective disorder and bipolar, PT SD, ulcerative colitis in addition to issues as outlined above. PHYSICAL EXAMINATION: GENERAL: Reveals a pleasant woman who is rather animated and is asking about leaving the hospital. Dopamine and Levophed are being weaned. Intravenous fluids are being given an d a CVP is 5. VITAL SIGNS: Current blood pressure is approximately 100/55, heart rate 66 with sinus rhythm on the monitor. Respiratory rate is 18. She is afebrile. HEENT: Unremarkable for lymphade nopathy or thyromegaly. Mucous membranes are moist. There is no jugular venous distention. CHEST: Clear bilaterally. Breath sounds are somewhat diminished. Expiratory phase is mildly prolonged. T here are no wheezes, rhonchi, or rales. HEART: Regular in rate and rhythm. A systolic murmur is pr esent, no gallop. ABDOMEN: Soft, nontender. Bowel sounds are present. There is no organomegaly. EXTREMITIES: Without edema, cords, or tenderness. NEUROLOGIC: Examination is nonfocal and mentatio n is intact. LAB STUDIES: As outlined above. White blood cell count 9000, hematocrit 35, platelets 336,000. PT and PTT and D-dimer were all negat tom or normal on admission. Initial lactate was 1.6 with a value of 0.6 on repeat. Procalcitonin wa s negative. Sodium was 132, potassium 4.2, BUN 19 with a creatinine 0.8. Glucose 164. LFTs were no rmal. Troponin was mildly elevated at 0.14. Albumin 2.8. TSH normal. Urinalysis negative. Tox s creen was positive for amphetamines. ASSESSMENT: 1. Hypotension. This was relatively acute onset by history and is poorly explained. The patient is on multiple medications. Her hypertension could be related to inappropriate excess dosing or possib le normal dosing in face of volume depletion related to methamphetamine use. There is no evidence of active heart disease, infection, sepsis, or other issues at this time. She was volume depleted to s ome extent on admission with a relatively low CVP and has responded to fluids. 2. History of multiple medical problems as outlined above, currently inactive. 3. Substance abuse. This includes tobacco and methamphetamine. PLANS AND RECOMMENDATIONS: Supportive care will be maintained if the patient wishes. Intravenous fl uids will be continued. Pressors are being weaned and do not appear to be needed at this time. Veronique penny will be followed. However, the patient is expressing the desire to want to leave the hospital , even if it is against medical advice. Further plans and recommendations will be made based on progress and wishes over the next 6 to12 hour s. Sadi #: [id number]
--- NOTE | 2018-01-03 17:33 | ASMTCMCOM ---
CM Note CM Note Notes: 57yr old female admitted for nausea, dizziness, hypotension. Has a Hx of CAD, [place], RA, COPD, BPD UC Hernia repair, Schizophrenia, Bipolar, PTSD, Smoker, Meth user. [facility] Patient states that she is going to leave by 11:00. CM to follow. Date Signed: 01/03/2018 05:32 PM Electronically Signed By:Francia Romano LCSW
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
--- NOTE | 2018-01-03 17:39 | ASMTDCNOTE ---
Case Management Discharge Discharge Order Complete? Answers: No Notes: Pt left AMA Patient to Obtain Answers: Independently Medications Transportation Arranged Answers: Bus Tokens Transport will Pick (Date 01/03/2018 11:00 AM & Time) Discharge Comments Notes: Patient left AMA Date Signed: 01/03/2018 05:38 PM Electronically Signed By:Francia Romano LCSW
--- NOTE | 2018-01-04 08:35 | CPEKG ---
Heart Rate: 73 RR Interval: 822 P-R Interval: 124 QRSD Interval: 124 QT Interval: 424 QTC Interval: 468 P [place]: 0 QRS [place]: 81 T Wave [place]: 134 EKG Severity - ABNORMAL ECG - EKG Impression: SINUS RHYTHM EKG Impression: PROBABLE LEFT ATRIAL ABNORMALITY EKG Impression: NONSPECIFIC INTRAVENTRICULAR CONDUCTION DELAY EKG Impression: INFERIOR INFARCT, OLD Electronically Signed By: Kayy Rodriguez 04-Jan-2018 22:53:25
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
--- NOTE | 2018-01-06 16:56 | PDDCSUM ---
Discharge Summary Discharge Summary: Diagnoses: - Undifferentiated shock - Polysubstance abuse - COPD - UC Hospital Course: 57 yo F w/ hx of CAD, COPD, BPD, UC, and recent L inguinal hernia repair presents with acute onset nausea and dizziness. Patient tells me she was [facility] when she experienced acute onset nausea and dizziness. She denies fever, chest pain, and shortness of breath. She denies prior similar episodes. She recently finished a course of steroids for bronchitis but denies any other recent illness. She did have a L inguinal hernia repair earlier this month but denies any obvious issues related to this. Of note, she does admit to smoking methamphetamine on the day prior to presentation. In the ED patient was noted be hypotensive on arrival. A central line was obtained and dopamine was started. Despite this, she remained hypotensive at the time of my evaluation in the ICU. Her laboroatory work-up was mostly unremarkable aside from POC troponin of 0.2. Due to this, a STAT Echo was obtained, which was not consistent with cardiogenic shock or cardiomyopathy. It did reveal area of previous infarct, which is consistent with her known medical history. Over the next 24 hours her symptoms resolved without clear etiology. The patient demanded to be discharged and therefore left the hospital.
== END 2018-01-03 13:20 | disposition left against medical advice (07) | DRG 292 ==
LOC: EDUNIT# → OBSVTOIN 21:47 → F2N 22:30
PROVIDERS: ADMIT Internal Medicine; ATTEND Student in an Organized Health Care Education/Training Program
PROC: 02HV33Z Insertion of Infusion Device into Superior Vena Cava, Percutaneous Approach (ICD-10-PCS; principal; 2018-01-02)
DX: R57.9 Shock, unspecified (principal); F15.10 Other stimulant abuse, uncomplicated; K51.90 Ulcerative colitis, unspecified, without complications; I25.10 Atherosclerotic heart disease of native coronary artery without angina pectoris; F31.9 Bipolar disorder, unspecified; J44.9 Chronic obstructive pulmonary disease, unspecified; I25.2 Old myocardial infarction; I10 Essential (primary) hypertension; F43.10 Post-traumatic stress disorder, unspecified; F17.210 Nicotine dependence, cigarettes, uncomplicated
CPT/HCPCS: 80307; 84484-PO; G0480; J1265; J1720; J2543; J3370; P9041; Q9967